=== PATIENT | female | born 1985 | race Caucasian/White ===

== ENCOUNTER 2016-06-04 14:38 | Emergency (ER) | payer OTHER ==
[~2016-06-04] VITALS: Ht 177.8 cm; Wt 74.8 kg
[2016-06-04] MEDS ORDERED: LOVE1INJ SC (14:54)
[2016-06-04] MEDS ORDERED: RANI150T PO (14:54)
[2016-06-04] MEDS ORDERED: ONDA4SOL PO (14:54)
[2016-06-04 17:00] VITALS: BP 106/66
[2016-06-04] MEDS ORDERED: AMOX500C PO (17:30)
[2016-06-04] MEDS ORDERED: CLAR1TAB2 PO (17:33)
== END 2016-06-04 17:44 | disposition home or self-care (01) ==
LOC: M ED 15:57
DX: J02.9 Acute pharyngitis, unspecified (principal); J01.90 Acute sinusitis, unspecified; Z79.899 Other long term (current) drug therapy

== ENCOUNTER 2016-10-20 13:24 | Outpatient (CLI) | payer OTHER ==
[~2016-10-20] VITALS: Ht 177.8 cm; Wt 85.0 kg
[~2016-10-20 13:24] MED LIST: AMOX500C PO; CLAR1TAB2 PO; LOVE1INJ SC; ONDA4SOL PO; RANI150T PO
[2016-10-20] MEDS ORDERED: HEPARIN IM (13:36)
[2016-10-20 13:43] VITALS: BP 108/60
[2016-10-20] MEDS ORDERED: ACET50TA PO (18:49)
== END 2016-10-20 14:15 | disposition home or self-care (01) ==
LOC: M LDO 13:24
PROVIDERS: ATTEND Obstetrics & Gynecology
DX: O47.1 False labor at or after 37 completed weeks of gestation (principal); Z3A.37 37 weeks gestation of pregnancy

== ENCOUNTER 2016-10-20 18:32 | Inpatient (IN) | payer OTHER ==
[~2016-10-20] VITALS: Ht 177.8 cm; Wt 84.0 kg
[~2016-10-20 18:32] MED LIST changes: +HEPARIN IM
[2016-10-20] MEDS ORDERED: ACET50TA PO (18:49)
[2016-10-20] MEDS ORDERED: LR 1,000 ML IV SCH (20:06)
--- NOTE | 2016-10-20 20:27 | HPEPDOC ---
Obstetrical History & Physical General Date of Admission Oct 20, 2016 at 19:57 History of Present Illness 31 y/o (Prior twins at 34 wks in 2000 and 2 EAB's that does not know about) with reg ctx's all day, seen ~6 hrs ago and was 2-3 cm. Now has Cat 1 NST and a cx exam 5-90/0/BBOW. Chief Complaint: Contractions, term Information Provided By: Patient Care Care: Good Care Dating Final EDC: Nov 08, 2016 Final EDC by: LMP, 1st trimester (US) Antepartum Course Diagnos(e)s Prior 2000 of twins in [place] at 34 weeks, both doing well- desires TOLAC DVT in 2006, was on OCP's and smoking. Has been on Lovenox daily then Heparin BID since 36 wks Past Medical History Past Obstetrical History : Past Obstetrical History: Multigravida Type of Delivery: Ceserean section [employer] History: No pertinent history Past Medical History Medical History DVT in 2006 Surgical History: Dilatation and Curettage (x1, EAB's 2010, 2011 ( does not know about this)), [place] teeth, Other (vein stripping 2013) Family History Significant Family History: No pertinent family hx Social History Marital Status: Family situation: Spouse/partner home Psychosocial History: No pertinent psych hx * Smoker: former Smoker (not for many years) Alcohol: Denies Drugs: denies Abuse Violence Screening Have you been hit/kicked/slapp: No Have you been sexually assault: No Imunizations Tdap status: current Influenza Status: declined Allergies Coded Allergies: No Known Drug Allergy (Verified Allergy, Unknown, 06/04/16) Medications Scheduled Ranitidine HCl (Ranitidine HCl) 150 Mg Tab, 1 TAB PO DAILY [Heparin 5000] , 5,000 UNITS IM BID Scheduled PRN Acetaminophen (Mapap) 500 Mg Tab, 1,000 MG PO for PAIN SCALE 6-10 Physical Examination Physical Examination GENERAL: Alert and oriented times three. ABDOMEN: Gravid and non-tender to touch. FETUS: Is vertex (VTX) by sterile vaginal examination, Cx 5/90/0. Adeq pelvis, EFW 3200 gm. HEART RATE: Regular rate and rhythm. LUNGS: Clear to auscultation (CTA). EXTREMITIES: No edema. No clonus. No pain. Laboratory Data 24H [facility] Laboratory Tests 2 10/20/16 20:06: Serology Scanned Report Hepatitis B Testing Pertinent Laboratoy Data Blood Type: AB+ RBC Antibody Screen: Negative HIV: Negative Hepatitis B: Negative Hepatitis C: Unknown Rapid Plasma Reagin: Nonreactive Rubella: Immune Varicella: Immune Chlamydia/Gonorrhea: Negative Group B Streptococcus: Negative Quad Screen Test: Negative (seq screen) Cystic Fibrosis: Negative Glucose Tolerance Test: 103 Anatomy Ultrasound Ultrasound Date: Jul 03, 2016 Placenta Location: Anterior Normal Anatomy: Yes Placenta Previa: No Steroid Therapy Steroid Therapy: No Vaginal Examination Dilation: 5 cm Effacement: 80+% Station: 0 Cervical Consistency: Soft Cervical Position: Anterior Presentation: Cephalic presentation Assessment Variability: Moderate Accelerations: Positive Decelerations: None Tocometer Contractions: Yes Frequency: regular Duration: greater than 60 seconds Strength: palpated as moderate Assessment/Plan Assessment 31 y/o at 37+2,prior . Desires TOLAC. R/B/I/A d/w pt. Plan Admit and orient. Desires natural labor for now. [employer] and consent. Diet: clrs Group B Streptococcus (GBS) negative Labs and intravenous (IV) per unit protocol. Counseled on TOLAC, possible need for stat . Spoke with Dr Pritchett in anesthesia, assured is in house. Lactated Ringers (LR): 125 mL/hr. Anticipate C-S as appropriate. Sessions SESSIONS,RUMILA Chung MD Oct 20, 2016 20:27
[2016-10-20 20:58] LABS: MEAN CORPUSCULAR HEMOGLOBIN 33.5 pg (27.0-33.0); MEAN CORPUSCULAR HGB CONC 35.1 g/dl (32.0-36.5); MEAN CORPUSCULAR VOLUME 95.3 fl (80.0-96.0); RED CELL DISTRIBUTION WIDTH 12.9 % (11.5-14.5); WHITE BLOOD COUNT 15.2 K/mm3 (4.0-10.0)
[2016-10-20] MEDS ORDERED: NALBUPHINE HCL 10 MG/ML AMP (J2300) IV ONE (21:15)
[2016-10-20] MEDS ORDERED: PROMETHAZINE INJ 25 MG/ML VIAL (J2550) IV ONE (21:15)
[2016-10-20] MEDS ORDERED: OXYTOCIN 30 UNITS IN 0.9% NaCl 500ML IV BAG (J2590) As Ordered ONE (22:40)
--- NOTE | 2016-10-20 22:41 | IPNPDOC ---
Text Note Date of Service The patient was seen on 10/20/16. NOTE Feltsignif relief with the Nubain/Phenergan,now feeling pressure NST Cat 1,reg ctx's Cx /0/AROM with vtx well applied,clr fluid Doing very well, check in ~1 hr,sooner prn. Sessions VS,Trinh, I+O VS, Trinh I+O Laboratory Tests 10/20/16 20:51 Red Blood Count 3.96 L, Mean Corpuscular Volume 95.3, Mean Corpuscular Hemoglobin 33.5 H, Mean Corpuscular Hemoglobin Concent 35.1, Red Cell Distribution Width 12.9 SESSIONS,URMILA Chung MD Oct 20, 2016 22:41
[2016-10-21] MEDS ORDERED: OXYTOCIN DRIP 30 UNITS in APPROPRIATE DILUENT 1 EA IV SCH (00:05)
--- NOTE | 2016-10-21 00:13 | DNPDOC ---
[facility] Delivery Note Delivery Note DATE OF DELIVERY: Oct 20, 2016 at 19:57 PREDELIVERY DIAGNOSIS: 37 2/7 weeks' gestation and labor. POST DELIVERY DIAGNOSIS: Delivered. PROCEDURE: successful PRODUCT RESPONSIBILITY LIAISON: Dr. Wilson ANESTHESIA: none, local for the repair ESTIMATED BLOOD LOSS: 200 mL. FINDINGS: 7 pound 4 ounce male , Score 9/10. DELIVERY SUMMARY: Natural labor. Excellent effort. NST reassuring throughout. No delay of the vtx or ant/post shoulders. LOT. Vigorous infant to abd. Cord C/C, by FOB. Cord blood. Plac intact with massage and slight traction. 1st deg per lac and a inner right labial lac repaired with 3-0 vicryl in standard fashion. Good hemostasis/cosmesis. Sessions MD WILSON,URMILA Chung MD Oct 21, 2016 00:13
[2016-10-21] MEDS ORDERED: MEASLES,MUMPS,RUBELLA VACCINE INJ (MMR-II) (90707) SC SCH (00:15)
[2016-10-21] MEDS ORDERED: METOCLOPRAMIDE INJ 10MG/2ML VIAL (J2765) IV PRN (00:15)
[2016-10-21] MEDS ORDERED: ACETAMINOPHEN TAB 650MG DOSE (2X325MG) PO PRN (00:15)
[2016-10-21] MEDS ORDERED: RHOGAM 300 MCG (1500 IU) INJ (J2790) IM SCH (00:15)
[2016-10-21] MEDS ORDERED: DIBUCAINE 1% OINTMENT 30GM TOP PRN (00:15)
[2016-10-21] MEDS ORDERED: IBUPROFEN 800 MG TAB As Ordered ONE (00:19)
[2016-10-21] MEDS: IBUPROFEN 800 MG TAB PO PRN ×3 (00:38→23:41)
[2016-10-21 01:50] VITALS: BP 123/63
[2016-10-21 06:00] VITALS: BP 122/54
--- NOTE | 2016-10-21 07:01 | IPNPDOC ---
Text Note Date of Service The patient was seen on 10/21/16. NOTE PPD1 prog note States feeling well, no complaints. No heavy VB. Pain controlled. Voiding, ambulatory. Bonding well and breast feeding well. VSSAF CTAB RRR Ut at U-2, firm Ext no CCE a/p: Doing well. d/c likely tomorrow. Routine PP care. Sessions Trinh CHARLES, I+O VSTrinh I+O Laboratory Tests 10/20/16 20:51 Red Blood Count 3.96 L, Mean Corpuscular Volume 95.3, Mean Corpuscular Hemoglobin 33.5 H, Mean Corpuscular Hemoglobin Concent 35.1, Red Cell Distribution Width 12.9 Vital Signs Date Time Temp Pulse Resp B/P (MAP) Pulse Ox O2 Delivery O2 Flow Rate FiO2 10/21/16 06:00 99.0 78 16 122/54 (76) Room Air I&O- Last 24 Hours up to 6 AM 10/21/16 05:59 Intake Total 120 ml Output Total 1200 ml Balance -1080 ml SESSIONS,URMILA Chung MD Oct 21, 2016 07:01
[2016-10-21] MEDS: PRENATAL VITAMINS CHEWABLE TABLET PO SCH (08:22)
[2016-10-21] MEDS: DOCUSATE SODIUM 100 MG CAP PO SCH ×2 (08:22→20:25)
[2016-10-21] MEDS ORDERED: ENOXAPARIN 40 MG/0.4 ML SYRINGE (J1650) SC SCH (12:00)
[2016-10-21 18:05] VITALS: BP 115/54
[2016-10-21 21:05] VITALS: BP 115/54
[2016-10-22 06:00] VITALS: BP 99/50
[2016-10-22] MEDS: PRENATAL VITAMINS CHEWABLE TABLET PO SCH (07:24)
[2016-10-22] MEDS: DOCUSATE SODIUM 100 MG CAP PO SCH (07:24)
[2016-10-22] MEDS ORDERED: LOVE1INJ SC (07:47)
[2016-10-22] MEDS ORDERED: PRENTAB9 PO (07:47)
[2016-10-22] MEDS ORDERED: COLA100C5 PO (07:47)
[2016-10-22] MEDS ORDERED: IBUP-1114 PO (07:47)
[2016-10-22] MEDS ORDERED: DIBU1OIN TOP (07:47)
--- NOTE | 2016-10-28 21:39 | RO ---
DATE OF PROCEDURE: 10/21/2016 This patient and requested circumcision of their male infant. After discussing risks and benefits of circumcision the medical and nonmedical indications, the penile block and aftercare expressed understanding of penile block and aftercare. All questions were answered, signed and witnessed consent form. We await clearance by the card scraper.
== END 2016-10-22 11:05 | disposition home or self-care (01) | DRG 775 ==
LOC: M LDO 18:32 → M LDI 19:57 → M OBS 10-21 03:36
PROVIDERS: ADMIT Obstetrics & Gynecology; ATTEND Obstetrics & Gynecology
PROC: 10E0XZZ Delivery of Products of Conception, External Approach (ICD-10-PCS; principal; 2016-10-21)
PROC: 0HQ9XZZ Repair Perineum Skin, External Approach (ICD-10-PCS; 2016-10-21)
DX: O34.211 Maternal care for low transverse scar from previous cesarean delivery (principal); Z3A.37 37 weeks gestation of pregnancy; O70.0 First degree perineal laceration during delivery; Z37.0 Single live birth; Z86.718 Personal history of other venous thrombosis and embolism; Z79.01 Long term (current) use of anticoagulants